=== PATIENT | male | born 1950 | race Caucasian/White ===

== ENCOUNTER 2019-04-17 10:47 | Emergency (ER) | payer OTHER ==
[~2019-04-17] VITALS: Ht 182.9 cm; Wt 110.0 kg
--- NOTE | 2019-04-17 11:00 | NUR ---
PT BIB EMS FOR SYNCOPE AT OFFICE VISIT FOR KNEE INJECTIONS. PT DID NOT SUSTAIN FALL. PER EMS PT WAS DIAPHORETIC. VS STABLE IN ROUTE 122/80 HR 48, 700 ML NS. PT HX OF DM2 BLOOD GLUCOSE 125, PT RESTING IN GURNEY, VS STABLE, REFERRAL MANAGEMENT LIAISON APPLIED, WAITING FOR MD ORDERS
[2019-04-17] MEDS ORDERED: OXYC-306 PO (11:20)
[2019-04-17] MEDS ORDERED: ATEN25TA PO (11:21)
[2019-04-17] MEDS ORDERED: LISI2.5T PO (11:22)
[2019-04-17] MEDS ORDERED: ATOR10TA PO (11:22)
[2019-04-17] MEDS ORDERED: CARV6.252 PO (11:22)
[2019-04-17] MEDS ORDERED: FENO160T PO (11:23)
[2019-04-17] MEDS ORDERED: METF500T17 PO (11:23)
[2019-04-17 11:46] VITALS: BP 117/53
--- NOTE | 2019-04-17 11:46 | NUR ---
Patient/Caregiver given discharge instructions and they have confirmed that they understand the instructions. Patient ambulatory with steady gait.
== END 2019-04-17 11:48 | disposition home or self-care (01) ==
LOC: ED 11:34
DX: R55 Syncope and collapse (principal); I10 Essential (primary) hypertension; E11.9 Type 2 diabetes mellitus without complications
CPT/HCPCS: 99283